=== PATIENT | female | born 1950 | race Caucasian/White ===

== ENCOUNTER 2017-03-15 10:37 | Day surgery (SDC) | payer OTHER ==
[~2017-03-15] VITALS: Ht 160 cm; Wt 46.2 kg
[~2017-03-15 10:37] MED LIST: ALEVE220 M2 PO; BONE DENSITY C1 EACH PO; CALCIUM 600 +1 EAC2 PO; PRESERVISIO1 CAPSULE BC; SYMBICORT60 INHALAT IH; ZESTRIL5 MG PO
[2017-03-15] MEDS ORDERED: SYMBICORT60 INHALAT IH (11:17)
[2017-03-15 11:21] VITALS: BP 145/89
[2017-03-15] MEDS ORDERED: NORCO 5/3251 TABLET PO (13:00)
[2017-03-15 13:45] VITALS: BP 129/53
[2017-03-15 14:15] VITALS: BP 107/54
[2017-03-15 15:15] VITALS: BP 114/58
[2017-03-15 16:10] VITALS: BP 115/59
== END 2017-03-15 16:10 | disposition home or self-care (01) ==
LOC: SDC 10:37
PROC: 0DH63UZ Insertion of Feeding Device into Stomach, Percutaneous Approach (ICD-10-PCS; principal; 2017-03-15)
DX: R13.10 Dysphagia, unspecified (principal); C02.9 Malignant neoplasm of tongue, unspecified; Z98.890 Other specified postprocedural states; Z92.21 Personal history of antineoplastic chemotherapy; Z85.828 Personal history of other malignant neoplasm of skin; I10 Essential (primary) hypertension; M19.90 Unspecified osteoarthritis, unspecified site; F17.200 Nicotine dependence, unspecified, uncomplicated; Z82.49 Family history of ischemic heart disease and other diseases of the circulatory system; Z82.5 Family history of asthma and other chronic lower respiratory diseases; R63.6 Underweight; Z68.1 Body mass index [BMI] 19.9 or less, adult
CPT/HCPCS: J2405; J2765; J3010; J7120